=== PATIENT | female | born 1930 | race Caucasian/White ===

== ENCOUNTER 2017-03-16 09:34 | Day surgery (SDC) | payer MEDICARE ==
[~2017-03-16 09:34] MED LIST: ADULT ASPIRIN81 MG PO; ASPIRIN81 M1 PO; AZITHROMYCIN500 MG PO; CALCIUM600 M1 PO; CELEXA20 M2 PO; CELEXA40 MG PO; CITRACAL200 MG PO; FISH OIL 11000 MG/CA PO; FOSAMAX70 M1 PO; GLUCOSAMINE & C1 CAP PO; GLUCOSAMINE &1 EAC1 PO; HYDROCHLOROTHIA25 M1 PO; HYDROCHLOROTHIA25 MG PO; LAMISIL250 M1 PO; METOPROLOL TART25 MG PO; METOPROLOL TART50 MG PO; MULTIVITAMIN1 TAB PO; MULTIVITAMINS1 EAC6 PO; NORCO 5-325 TA1 EACH PO; PREDNISONE10 MG PO; SIMVASTATIN40 MG PO; TOPROL XL25 M1 PO; VASOTEC2.5 M1 PO; VITAMIN D31000 UNI4 PO; ZOCOR40 M1 PO
[2017-03-16 12:14] LABS: BASO % 0.4 % (0-2); EOS % 1.7 % (0-7); EOSINOPHIL ABSOLUTE COUNT 0.1 tho/cmm (0.0-0.7); HCT-HEMATOCRIT 35.4 % (34.0-49.0); HGB-HEMOGLOBIN 11.7 gm/dl (12.0-15.5); IMMATURE GRANULOCYTES ABSOLUTE 0.01 tho/cmm (0-0.03); IMMATURE GRANULOCYTES PERCENT 0.1 % (0-0.3); LYMPH % 17.8 % (20-45); LYMPH ABSOLUTE COUNT 1.4 tho/cmm (0.8-4.5); MCH (MEAN CORPUSCULAR HGB) 30.5 pg (28.0-32.0); MCHC MEAN CORPUSCULAR HGB CONC 33.1 % (32.0-36.0); MCV (MEAN CELL VOLUME) 92.2 fl (82.0-96.0); MEAN PLATELET VOLUME 10.3 cmc (9.4-12.4); MONO % 5.3 % (0-12); MONOCYTE ABSOLUTE COUNT 0.4 tho/cmm (0.0-1.2); NEUTROPHIL ABSOLUTE COUNT 6.1 tho/cmm (1.6-8.0); NEUTROPHIL-AUTOMATED 6.1 tho/cmm (1.6-8.0); NEUTROPHILS % 74.7 % (40-80); PLATELET COUNT 240 tho/cmm (150-450); RED BLOOD COUNT 3.84 mil/cmm (4.00-5.20); RED CELL DISTRIBUTION WIDTH 12.3 % (12.4-16.4); WHITE BLOOD COUNT 8.1 tho/cmm (4.0-10.0)
[2017-03-16 12:23] LABS: ANION GAP 9 mmol/L (0-20); BLOOD UREA NITROGEN 14 mg/dl (6-24); CALCIUM 9.1 mg/dl (8.5-10.5); CARBON DIOXIDE-VENOUS 30 mmol/L (22-32); CHLORIDE 102 mmol/l (96-110); CREATININE 0.87 mg/dl (0.50-1.10); GLUCOSE 118 mg/dL (70-110); POTASSIUM 4.4 mmol/L (3.7-5.1); SODIUM 137 mmol/L (135-145); eGFR VALUE FOR BLACK 69 mL/Min
[2017-03-16 12:30] LABS: PROTHROMBIN TIME 11.1 SECONDS (9.0-13.6)
[2017-05-31] MEDS ORDERED: POTASSIUM CHLO20 ME3 PO (14:35)
[2017-05-31] MEDS ORDERED: NORVASC5 M2 PO (14:36)
[2017-05-31] MEDS ORDERED: GLUCOTROL XL2.5 M1 PO (14:36)
[2017-05-31] MEDS ORDERED: MAG6464 MG PO (14:36)
[2017-05-31] MEDS ORDERED: METOPROLOL TART25 M1 PO (14:37)
[2017-05-31] MEDS ORDERED: CHEMO (15:41)
[2017-05-31] MEDS ORDERED: CARBOPLATIN150 MG IV (16:21)
[2017-05-31] MEDS ORDERED: DOCETAXEL IV (16:21)
[2017-05-31] MEDS ORDERED: DEXAMETHAS10 MG/1 ML IV (16:22)
[2017-05-31] MEDS ORDERED: ALOXI0.25 MG/5 IV (16:23)
[2017-05-31] MEDS ORDERED: NEULASTA6 MG/0.6 M SC (16:24)
[2017-05-31] MEDS ORDERED: DIPHENHYDR50 MG/1 M2 IV (16:24)
[2017-05-31] MEDS ORDERED: METHYLPREDNISO125 MG IV (16:25)
[2017-05-31] MEDS ORDERED: DEXAMETHASONE4 M1 PO (16:26)
[2017-06-02] MEDS ORDERED: ELIQUIS2.5 M1 PO (12:06)
[2017-06-02] MEDS ORDERED: AMIODARONE HCL200 M1 PO (12:06)
== END 2017-03-16 16:35 ==
LOC: CARD 09:34 → SHSA 09:35
PROVIDERS: Internal Medicine Medical Oncology
PROC: 05HM33Z Insertion of Infusion Device into Right Internal Jugular Vein, Percutaneous Approach (ICD-10-PCS; principal; 2017-03-16)
PROC: B513ZZA Fluoroscopy of Right Jugular Veins, Guidance (ICD-10-PCS; 2017-03-16)
DX: C50.311 Malignant neoplasm of lower-inner quadrant of right female breast (principal); I08.1 Rheumatic disorders of both mitral and tricuspid valves; I10 Essential (primary) hypertension; E11.9 Type 2 diabetes mellitus without complications; F32.9 Major depressive disorder, single episode, unspecified; M19.90 Unspecified osteoarthritis, unspecified site; I25.10 Atherosclerotic heart disease of native coronary artery without angina pectoris; M85.80 Other specified disorders of bone density and structure, unspecified site; Z79.899 Other long term (current) drug therapy
CPT/HCPCS: A9503; C1788; J0690; J2250; J2405; J3010; J7030; Q9967